=== PATIENT | male | born 1935 | race Caucasian/White ===

== ENCOUNTER 2017-04-26 21:03 | Inpatient (IN) | payer MEDICARE, MEDICAID ==
--- NOTE | 2017-04-26 21:35 | ED Physician Chart ---
ED Chief Complaint/HPI - Patient Information Date Seen:: 04/26/17 Time Seen:: 21:05 Chief Complaint:: left-sided weakness History of Present Illness:: Patient developed what he described as left leg heaviness last night which improved. Patient had left arm numbness and weakness this morning which has persisted. He walks with a noticeable limp. His speech is also noted to be slower than usual although he apparently always has slow speech. He normally takes 1 baby aspirin a day but he was given 2 this morning. Patient had a CVA about 2 years ago which left no focal neurological deficit. At that time dementia was diagnosed Allergies:: Allergies Allergy/AdvReac Type Severity Reaction Status Date / Time No Known Allergies Allergy Verified 04/26/17 21:17 Vitals:: Vital Signs - 8 hr 04/26/17 21:03 Temp 97.0 F HR 78 RR 18 BP 154/84 O2 Sat % 99 Historian:: Family Member Review:: Nurse's Note Reviewed ED Review of Systems - Review of Systems General/Constitutional: No fever, No chills Skin: No skin lesions Head: No headache Eyes: No loss of vision ENT: No earache Neck: No neck pain, No swelling Cardio Vascular: No chest pain, No palpitations Pulmonary: No SOB GI: No nausea, No vomiting, No diarrhea G/U: No dysuria Musculoskeletal: No bone or joint pain Endocrine: No polyuria, No polydipsia Psychiatric: Prior psych history Hematopoietic: No bruising Allergic/Immuno: No urticaria Neurological: No syncope ED Past Medical History - Past Medical History Past Medical History: HTN, DM Family History: Heart disease, Diabetes Melitus Social History: Non Smoker, No Alcohol, Other (drank alcohol many years ago) Surgical History: None Psychiatricy History: Dementia Medication: Reviewed Family Medical History - Family Member Mother History Unknown: Yes ED Physical Exam - Physical Examination General/Constitutional: Awake, Well-developed, well-nourished, Alert Head: Atraumatic Eyes: Lids, conjuctiva normal, PERRL Skin: Nl inspection, No rash ENMT: External ears, nose nl, Nasal exam nl, Lips, teeth, gums nl, Oropharynx nl , Tonsils nl Neck: No nuchal rigidity Respiratory: Clear to Auscultation, No Wheeze/Rhonchi/Rales Cardio Vascular: RRR, No murmur, gallop, rubs, NL S1 S2 GI: No tenderness/rebounding/guarding Other Neuro/Psych comments:: Minimal drooping left side of mouth; decreased left hand grasp; leg strength grossly equal; Babinski: Left equivocal right upgoing Misc: Normal back ED Labs/Radiology/EKG Results - Lab Results Comments:: Laboratory Results - last 24 hr 04/26/17 04/26/17 04/26/17 21:35 21:35 21:35 WBC 6.6 RBC 5.32 Hgb 15.5 Hct 46.4 MCV 87.3 MCH 29.1 MCHC Differential 33.4 RDW 14.0 Plt Count 178 MPV 7.8 Neutrophils % 63.8 Lymphocytes % 22.8 Monocytes % 9.0 Eosinophils % 3.4 Basophils % 1.0 PT 10.2 INR 0.98 PTT (Actin FS) 22.7 L Sodium 137 Potassium 3.8 Chloride 105 Carbon Dioxide 26.7 Anion Gap 9.1 BUN 19 Creatinine 1.3 Est GFR ( Amer) TNP Est GFR (Non-Af Amer) TNP BUN/Creatinine Ratio 14.6 Glucose 132 H Calcium 9.9 - Radiology Results Results: Chest x-ray normal. CT head shows an old large right parietal infarct. - EKG Interpretations Rate & Rhythm: normal sinus rhythm with a rate of 70 [place]: normal Comments:: Q waves in about [address] elevation in V1 and V2 ED Septic Shock - . Is Septic Shock (SBP<90, OR Lactate>4 mmol\L) present?: No - <6hrs of presentation: Vital Signs: Vital Signs - 8 hr 04/26/17 21:03 Temp 97.0 F HR 78 RR 18 BP 154/84 O2 Sat % 99 ED Reassessment (Disposition) - Reassessment Reassessment Condition:: Unchanged - Diagnosis Diagnosis:: Cerebrovascular accident - Patient Disposition Admitted to:: Med/Surg Spoke to:: Hira Calero Admitting Medical Physician:: Hira Calero Condition at Disposition:: Stable, Unchanged
[2017-04-26 21:44] LABS: % EOSINOPHILS 3.4 % (0.0-5.0); % LYMPHOCYTES 22.8 % (20.0-50.0); % NEUTROPHILS 63.8 % (40.0-80.0); BASOPHILE ABSOLUTE 0.1 Th/cumm (0-0.2); EOSINOPHILE ABSOLUTE 0.2 Th/cmm (0.1-0.4); HEMATOCRIT 46.4 % (41.0-60); HEMOGLOBIN 15.5 gm/dL (12-16); LYMPHOCYTE ABSOLUTE 1.5 Th/cmm (1.5-3.0); MEAN CELL VOLUME 87.3 fl (80-99); MEAN CORPUSCULAR HEMOGLOBIN 29.1 pg (27.0-31.0); MEAN CORPUSCULAR HGB CONC 33.4 pg (28.0-36.0); MEAN PLATELET VOLUME 7.8 fl; MONOCYTE ABSOLUTE 0.6 Th/cmm (0.3-1.0); NEUTROPHILE ABSOLUTE 4.2 Th/cmm (1.8-8.0); PLATELET COUNT 178 Th/cmm (150-400); RED BLOOD COUNT 5.32 Mil/cmm (3.80-5.80); WHITE BLOOD COUNT 6.6 Th/cmm (4.8-10.8)
[2017-04-26 21:58] LABS: INR 0.98 (0.5-1.4); PROTHROMBIN TIME (TEST) 10.2 SECONDS (9.5-11.5)
[2017-04-26 22:09] LABS: ANION GAP 9.1 (7.0-16.0); BUN - UREA NITROGEN 19 mg/dL (7-25); CALCIUM SERUM 9.9 mg/dL (8.6-10.3); CARBON DIOXIDE 26.7 mEq/L (21.0-31.0); CHLORIDE 105 mEq/L (98-107); CREATININE - SERUM 1.3 mg/dL (0.7-1.3); GLUCOSE 132 mg/dL (70-105); POTASSIUM SERUM 3.8 mEq/L (3.5-5.1); SODIUM SERUM 137 mEq/L (136-145)
[2017-04-26] MEDS ORDERED: Aspirin 81mg Chewable Tab PO STA ×2 (23:27→23:50)
[2017-04-26] MEDS ORDERED: Aspirin 81mg Chewable Tab ONE (23:29)
[2017-04-27] MEDS: Sodium Chloride 0.9% 1,000 ML IV SCH ×2 (03:34→17:20)
[2017-04-27 06:23] LABS: % BASOPHILS 0.8 % (0.0-2.0); % LYMPHOCYTES 25.2 % (20.0-50.0); % MONOCYTES 11.4 % (2.0-10.0); % NEUTROPHILS 57.6 % (40.0-80.0); EOSINOPHILE ABSOLUTE 0.2 Th/cmm (0.1-0.4); HEMATOCRIT 43.3 % (41.0-60); HEMOGLOBIN 14.4 gm/dL (12-16); LYMPHOCYTE ABSOLUTE 1.3 Th/cmm (1.5-3.0); MEAN CELL VOLUME 87.3 fl (80-99); MEAN CORPUSCULAR HEMOGLOBIN 29.1 pg (27.0-31.0); MEAN CORPUSCULAR HGB CONC 33.3 pg (28.0-36.0); MEAN PLATELET VOLUME 8.3 fl; MONOCYTE ABSOLUTE 0.6 Th/cmm (0.3-1.0); NEUTROPHILE ABSOLUTE 2.9 Th/cmm (1.8-8.0); PLATELET COUNT 161 Th/cmm (150-400); RED BLOOD COUNT 4.95 Mil/cmm (3.80-5.80)
[2017-04-27] MEDS: Pantoprazole 40 mg EC Tab PO SCH (06:23)
[2017-04-27 06:33] LABS: ANION GAP 8.9 (7.0-16.0); BUN - UREA NITROGEN 18 mg/dL (7-25); CALCIUM SERUM 9.6 mg/dL (8.6-10.3); CARBON DIOXIDE 24.8 mEq/L (21.0-31.0); CHLORIDE 107 mEq/L (98-107); CREATININE - SERUM 1.2 mg/dL (0.7-1.3); GLUCOSE 98 mg/dL (70-105); POTASSIUM SERUM 3.7 mEq/L (3.5-5.1); SODIUM SERUM 137 mEq/L (136-145)
[2017-04-27] MEDS ORDERED: INSULIN ASPART SLIDING SCALE 100 UNITS/ML UNIT SUBQ SCH (07:30)
--- NOTE | 2017-04-27 07:45 | Diagnostic Imaging Report ---
Exam: CT examination of brain. HISTORY: Left-sided weakness. Total DLP equals 560 CTDI equals 0.9, 0.9. Findings: Multiple contiguous thin section of the brain were obtained from the base of skull to the vertex without the administration of contrast material the study compared to prior exam 10/08/2014 The study demonstrates relatively large hypodense region in the right parietal lobe suggestive of an old infarct. There is no evidence for edema midline shift or hemorrhage. The ventricular system is intact. Prominence of cerebral sulci suggestive of atrophy. The bony calvarium is intact the paranasal sinuses are well aerated. IMPRESSION: Large old right parietal infarct Atrophy, periventricular ischemic white matter changes of old splenic artery.
[2017-04-27] MEDS ORDERED: MEMANTINE HCL 28 MG PO SCH (09:00)
[2017-04-27] MEDS ORDERED: IOHEXOL 300mgI/mL 50 ML VIAL PO ONE (09:30)
--- NOTE | 2017-04-27 09:56 | Diagnostic Imaging Report ---
Portable chest x-ray HISTORY: Pain The overall heart size is difficult to assess with portable technique and a poor inspiration. No focal bony processes. No hilar or mediastinal abnormalities. IMPRESSION: No acute abnormalities
[2017-04-27] MEDS: INSULIN ASPART SLIDING SCALE 100 UNITS/ML UNIT SUBQ SCH ×4 (11:54→20:23)
--- NOTE | 2017-04-27 12:13 | History & Physical ---
ADMIT DATE: 04/27/2017 CHIEF COMPLAINT: Brought in to the Emergency Room for evaluation of left-sided weakness. HISTORY OF PRESENT ILLNESS: An 82-year-old -[place] male who resides in a [facility], has history of diabetes, hypertension, hyperlipidemia, psychotic disorder, noted by staff that the patient was weak on his left side and his speech was most dysarthric and more lethargic than usual. When the patient was arrived in the Emergency Room, the patient was worked up and noted that numbness and weakness was still persistent on the left lower extremity. The patient was advised to be admitted for further treatment. PAST MEDICAL HISTORY: Remarkable for; 1. Diabetes. 2. Hypertension. 3. Hyperlipidemia. 4. BPH. 5. DJD. 6. Psychotic disorder. MEDICATIONS LIST: Has been reviewed and reconciled appropriately. ALLERGIES: The patient is not allergic to medication. SOCIAL HISTORY: He is a ____. He lives in assisted living facility. The patient has no smoking cigarette, alcohol, or drug use. FAMILY HISTORY: Remarkable for diabetes and hypertension. REVIEW OF SYSTEMS: The patient is lying in the bed, unable to get meaningful history from the patient currently. PHYSICAL EXAMINATION: GENERAL: The patient is alert and awake, lying in the bed without any acute distress. VITAL SIGNS: Temperature 98, pulse is 64, respiratory rate 18, and blood pressure 110/70. SKIN: Warm to touch. HEENT: Normocephalic and atraumatic. Extraocular muscles are intact. Tongue was pink and coated. Poor dentition noted. NECK: Supple. No JVD. No hepatojugular reflux. No lymphadenopathy, thyromegaly, or carotid bruit. HEART: Both heart sounds are regular. No S3, no S4. Grade 2/6 systolic murmur noted. CHEST: Lungs equal in expansion. No wheezing. No crackles. ABDOMEN: Soft. No guarding or rigidity. Bowel sounds are present. No palpable mass. EXTREMITIES: No edema, no cyanosis. Pulses are +1. NEUROLOGIC: Alert and awake. Follows commands. No facial asymmetry noted. A 2-12 cranial nerves are intact. Power in upper and lower extremity, decreased on the left side is 4+ including proximal and distal muscles, right lower extremity is 5-. Unable to assess cerebellar sign at this time. AVAILABLE DIAGNOSTIC DATA: CT scan of the head was done on 04/26/2017, which is a large old right parietal infarct noted, atrophy of periventricular ischemic white matter changes noted. White count of 5, hemoglobin 14.4, and platelet count 161. Chemistry panels are within normal limit. Chest x-ray; no infiltrate, no congestion. EKG; normal sinus rhythm, no ST-T changes are representing acute ischemia. CLINICAL IMPRESSION: 1. Most likely transient ischemic attack versus reversible ischemic neurological deficit. The patient does have previous stroke. Unable to reassess due to being unable to get meaningful history from the patient. 2. Diabetes. 3. Hypertension. 4. Degenerative joint disease. 5. Benign prostatic hypertrophy. 6. Psychotic disorder. PLAN: The patient was admitted by Dr. Collins overnight. The patient will be placed on antiplatelet therapy with high dose statins. Neurology consultation requested. Appropriate home medicine were reconciliated. Diabetes management will be continued as well as other medications will be continued as well. The patient is to have Neurology evaluation from Dr. Kinsey as well. PT, OT will be started as well. Further workup including CT scan of the head with and without contrast, 2D echocardiogram along with carotid ultrasound will be done as well. Further recommendation will be given once other lab datas are available. JOB# [id number]
--- NOTE | 2017-04-27 12:15 | Diagnostic Imaging Report ---
Exam: CT examination of brain. HISTORY: CVA Total DLP equals 645 CTDI equals 36.1 Compared to prior study the early. Findings: Multiple contiguous thin section of the brain were obtained from base of skull to the vertex with administration of intravenous contrast material. The study again demonstrates atrophy with old right the parietal infarct. There is no evidence of hemorrhage midline shift or edema. The cerebellum is intact. The bony calvarium is normal. The paranasal sinuses are well aerated. IMPRESSION: Unchanged compared to prior examination day earlier.
--- NOTE | 2017-04-27 12:18 | Diagnostic Imaging Report ---
Exam: Ultrasound examination of the extracranial carotid circulation. HISTORY: CVA. Findings: Real-time ultrasound examination of the extracranial carotid circulation performed multiple planes utilizing color Doppler technique. The study was correlated with the prior exam of 10/09/2014. The study again demonstrates [id number] atherosclerotic disease of the internal carotid arteries was atherosclerotic plaque formation consistent with calcified and soft plaque formation at the origin internal carotid arteries bilaterally. There is evidence for subintimal thickening in the right carotid bulb. Antegrade flow is noted vertebral circulation bilaterally. The right internal carotid artery ratio 1.3. Left internal right artery ratio is 0.9 Mild to moderate atherosclerotic plaque formation results in approximately 50-60% narrowing of the right internal carotid artery at the origin. Mild atherosclerotic plaque formation of the left internal carotid arteries noted of the origin without significant stenosis or alteration of flow. IMPRESSION: Moderate atherosclerotic plaque formation the right internal carotid artery with approximately 60% narrowing at the origin. Mild atherosclerotic changes of the left side without significant stenosis or alteration of flow.
[2017-04-27] MEDS: Atorvastatin Calcium 10 MG TAB PO SCH (20:23)
[2017-04-28] MEDS: Sodium Chloride 0.9% 1,000 ML IV SCH (04:23)
[2017-04-28 06:10] LABS: ANION GAP 8.2 (7.0-16.0); BUN - UREA NITROGEN 18 mg/dL (7-25); CALCIUM SERUM 9.4 mg/dL (8.6-10.3); CARBON DIOXIDE 24.7 mEq/L (21.0-31.0); CHLORIDE 108 mEq/L (98-107); CHOLESTEROL 134 mg/dL (<200); CREATININE - SERUM 1.2 mg/dL (0.7-1.3); GLUCOSE 115 mg/dL (70-105); HDL -HIGH DENSITY LIPOPROTEIN 36 mg/dL (23-92); POTASSIUM SERUM 3.9 mEq/L (3.5-5.1); SODIUM SERUM 137 mEq/L (136-145); TRIGLYCERIDES 118 mg/dL (<150)
[2017-04-28] MEDS: Pantoprazole 40 mg EC Tab PO SCH (06:15)
[2017-04-28] MEDS: INSULIN ASPART SLIDING SCALE 100 UNITS/ML UNIT SUBQ SCH ×4 (06:32→20:08)
--- NOTE | 2017-04-28 15:29 | Cardiology ---
04/27/2017 INCOMPLETE DICTATION The patient of Dr. Yancey. PROCEDURE: Echocardiogram. M-MODE ECHOCARDIOGRAM: Mitral valve, anterior leaflet of mitral valve shows normal excursion, EF velocity. Posterior leaflet of the mitral valve shows normal excursion. Left ventricular posterior wall shows increased thickness, normal excursion. Interventricular septum shows increased thickness and normal excursion. There is hypertrophy of the left ventricle, ejection fraction 55%. Left atrium normal. Aortic root shows normal dimension, minimal sclerosis of aortic leaflets. Questionable regurgitation. CONCLUSION: Hypertrophy of the left ventricle, sclerosis of aortic leaflets. 2D ECHO: Long axis view showed normal sized left ventricle with hypertrophy of the left ventricle. Left atrium normal. Aortic root shows normal dimension. The aortic leaflets shows sclerosis with possible regurgitation. Correlate clinically. Short axis view of mitral valve normal. Short axis DICTATION ENDS HERE. JOB# [id number]
--- NOTE | 2017-04-28 16:04 | Cardiology ---
04/27/2017 The patient of [facility]. Procedure: Echocardiogram. M-MODE ECHOCARDIOGRAM: Mitral valve, anterior leaflet of mitral valve shows normal excursion, EF velocity. Posterior leaflet of mitral valve shows normal excursion. Left ventricular posterior wall shows increased thickness, normal excursion. Interventricular septum shows increased thickness, normal excursion, hypertrophy of the left ventricle, ejection fraction 55%. Left atrium enlarged. Aortic root shows normal dimension, normal excursion of aortic leaflets. CONCLUSION: Hypertrophy of the left ventricle, sclerosis of aortic leaflets, ejection fraction 55%. 2D ECHO: Long axis view shows normal sized left ventricle with hypertrophy of the left ventricle. Left atrium normal. Aortic root shows normal dimension. The aortic leaflets shows sclerosis of aortic leaflets, possible vegetation. Short axis view of mitral valve normal. Short axis view of aortic valve shows possible regurgitation. There is minimal sclerosis of aortic leaflets. Apical four chamber view showed normal sized left ventricle with hypertrophy of the left ventricle. Left atrium normal. Right ventricular cavity, right atrium normal. No pericardial effusion. CONCLUSION: Minimal sclerosis of aortic leaflets, possible regurgitation, correlate clinically. Hypertrophy of the left ventricle, ejection fraction 55%. Doppler study shows mild tricuspid regurgitation. JOB# [id number]
[2017-04-28] MEDS: Atorvastatin Calcium 10 MG TAB PO SCH (20:08)
--- NOTE | 2017-04-29 01:43 | Progress Notes ---
DATE: 04/28/2017 SUBJECTIVE: The patient was seen and examined. The patient is lying in the bed. The patient has expressive aphasia with underlying psychiatric history, unable to get meaningful history. According to the patient, the patient feels better. PHYSICAL EXAMINATION: VITAL SIGNS: Temperature 98.4, pulse 64, respiratory rate 18, and blood pressure 105/57. HEENT: No facial asymmetry. Multiple poor dentition noted. NECK: Supple, no JVD. HEART: Regular. CHEST: Equal in expansion. No expiratory wheezing. ABDOMEN: Soft. No guarding or rigidity. Bowel sounds are present. EXTREMITIES: Remarkable for right-sided weakness noted. AVAILABLE DIAGNOSTIC STUDIES: CT scan of the head with contrast revealed old right parietal infarct without any evidence of any hemorrhage. Carotid artery ultrasound is remarkable for moderate atherosclerotic plaque formation in the right internal carotid artery with approximately 60% narrowing of the origin. Lipid panel is remarkable for cholesterol 134 with triglyceride of 118, HDL of 36, and LDL of 84. BUN and creatinine are normal. A 2D echocardiogram is currently pending. ASSESSMENT: 1. Most likely transient ischemic attack. 2. Carotid artery stenosis. 3. Cerebrovascular accident with late effect. 4. Diabetes mellitus. 5. Hypertension. 6. Psychotic disorder. 7. Degenerative joint disease. 8. Benign prostatic hypertrophy. PLAN: The patient looks clinically stable at this time. We will wait for 2D echocardiogram report and we will put the patient on antiplatelet therapy. Considering the patient's 60% stenosis on carotid ultrasound. The patient will also wait for Dr. Kinsey's evaluation prior to disposition of this patient to lower level of care as well. Meanwhile, continue current treatment plan as prescribed. Continue to provide physical therapy and occupational therapy as well as general nursing care as well. JOB# [id number]
[2017-04-29] MEDS: Pantoprazole 40 mg EC Tab PO SCH (06:42)
[2017-04-29] MEDS: INSULIN ASPART SLIDING SCALE 100 UNITS/ML UNIT SUBQ SCH ×3 (06:42→17:34)
[2017-04-29 07:19] LABS: ANION GAP 7.6 (7.0-16.0); BUN - UREA NITROGEN 20 mg/dL (7-25); CALCIUM SERUM 9.6 mg/dL (8.6-10.3); CHLORIDE 107 mEq/L (98-107); CREATININE - SERUM 1.2 mg/dL (0.7-1.3); GLUCOSE 113 mg/dL (70-105); POTASSIUM SERUM 3.6 mEq/L (3.5-5.1); SODIUM SERUM 137 mEq/L (136-145)
--- NOTE | 2017-04-29 16:25 | Discharge Summary ---
DATE OF DISCHARGE: 04/29/2017 DATE OF DISCHARGE: 04/29/2017. PRINCIPAL DIAGNOSES: 1. Transient ischemic attack. 2. Cerebrovascular accident with right-sided weakness. 3. Right internal carotid artery stenosis 60%. 4. Hypertension. 5. Diabetes mellitus. 6. Left ventricular hypertrophy by 2D echocardiogram. 7. Degenerative joint disease. 8. Benign prostatic hypertrophy. 9. Hyperlipidemia. 10. Fall risk. BRIEF STATEMENT FOR THE REASON FOR ADMISSION: An 82-year-old male presented to Emergency Room for evaluation of acute onset of left-sided weakness. The patient was evaluated and subsequently admitted to the hospital. Please refer to my dictated H and P for further information. HOSPITAL COURSE: The patient was admitted to telemetry unit. The patient was placed on antiplatelet therapy along with high-dose statin. Neurology consultation requested. Unfortunately, Neurology service was not available, but the patient underwent CT scan of head with contrast, carotid ultrasound, and 2D echocardiogram. Workup did reveal the patient has LVH with ejection fraction of 55% with right internal carotid artery stenosis origin, it is 60%. The patient was placed on Plavix. The patient did have no further neurological deterioration. The patient did have significant improvement with his symptoms after being admitted. The patient was able to eat well. The patient was able to ask for need for his activity of daily living. The patient remained hemodynamically stable. Discussed with family service caseworker about discharging this patient to a lower level of care. After talking to the patient's RN, the patient will be going home versus snf with taking Plavix 75 mg daily and discontinue the aspirin and keep atorvastatin 20 mg a day along with other medication that is patient receiving. The patient will be seen by primary care pediatrician in office in 1-2 weeks or goes to snf as scheduled as well. JOB# [id number]
--- NOTE | 2017-04-29 16:56 | Progress Notes ---
DATE: 04/29/2017 PATIENT'S IDENTIFICATION: An 82-year-old male. SUBJECTIVE: The patient seen and examined. The patient's room has changed to a room #18, bed #2. The patient is lying in the bed. The patient speaks Swedish only. According to the staff, the patient was able to eat, stand up, and ask for his basic need as well. To further questioning, the patient denies any chest pain, shortness of breath, palpitation, or dizziness. PHYSICAL EXAMINATION: VITAL SIGNS: Temperature 98.4, pulse 67, respiratory rate 18, and blood pressure 134/84. HEENT: No facial asymmetry. Poor dentition noted. NECK: Supple. No JVD. No lymphadenopathy or thyromegaly. HEART: Both heart sounds are regular. CHEST: Lungs are equal in expansion. No expiratory wheezing. ABDOMEN: Soft. No guarding, no rigidity. Bowel sounds are present. No palpable mass. EXTREMITIES: No edema, no cyanosis. NEURO: Right-sided weakness noted. AVAILABLE DATA: 2D echo remarkable for sclerosis of aortic leaflet with regurgitation, hypertrophy of left ventricle with ejection fraction of 55% noted. CLINICAL IMPRESSION: 1. Transient ischemic attack. 2. Left ventricular hypertrophy by 2D echocardiogram. 3. 60% carotid artery stenosis of the right internal carotid artery, narrowing at the origin. 4. Diabetes mellitus. 5. Hypertension. 6. Psychotic disorder. 7. Degenerative joint disease. 8. Benign prostatic hypertrophy. 9. Dementia. PLAN: Case, the patient is clinically stable. At this time, the patient will be discharged to home with Plavix 75 mg a day and discontinue aspirin for now. The patient can resume other medication as the patient receiving including a moderate potency statin, atorvastatin 20 mg a day. The patient will be continued on other medication as well. The patient's discharge will be home versus half-way based on the patient's safety. Discharge instruction discussed with RN and upper caser. JOB# [id number]
== END 2017-04-29 18:35 | disposition home or self-care (01) | DRG 69 ==
LOC: ER 21:03 → TELE 23:49 → MSI 04-29 17:16
PROVIDERS: ADMIT Internal Medicine; ATTEND Internal Medicine
DX: G45.9 Transient cerebral ischemic attack, unspecified (principal); I69.951 Hemiplegia and hemiparesis following unspecified cerebrovascular disease affecting right dominant side; E11.9 Type 2 diabetes mellitus without complications; R47.01 Aphasia; F03.90 Unspecified dementia, unspecified severity, without behavioral disturbance, psychotic disturbance, mood disturbance, and anxiety; M19.90 Unspecified osteoarthritis, unspecified site; N40.0 Benign prostatic hyperplasia without lower urinary tract symptoms; F29 Unspecified psychosis not due to a substance or known physiological condition; I11.9 Hypertensive heart disease without heart failure; E78.5 Hyperlipidemia, unspecified; Z79.82 Long term (current) use of aspirin; Z83.3 Family history of diabetes mellitus; Z82.49 Family history of ischemic heart disease and other diseases of the circulatory system; Z79.899 Other long term (current) drug therapy; Z79.1 Long term (current) use of non-steroidal anti-inflammatories (NSAID); Z79.2 Long term (current) use of antibiotics
CPT/HCPCS: 36415-UA; 70450-TC; 70460-TC; 71045-TC; 80048-TC; 80061-TC; 82948-90; 84484-TC; 85025-TC; 85610-TC; 85730-TC; 93005; 93307-TC; 93880-TC; 97530; J1815; J7030; Q9967; X3904; Z7610

== ENCOUNTER 2018-08-12 18:33 | Inpatient (IN) | payer MEDICARE, MEDICAID ==
--- NOTE | 2018-08-12 19:12 | ED Physician Chart ---
ED Chief Complaint/HPI - Patient Information Date Seen:: 08/12/18 Time Seen:: 19:06 Chief Complaint:: psychosis History of Present Illness:: 83 yr old with hx cva htn pvd depression diabetes copd here for aggressive behaviour toward staff Allergies:: Allergies Allergy/AdvReac Type Severity Reaction Status Date / Time No Known Allergies Allergy Verified 04/26/17 21:17 Vitals:: Vital Signs - 8 hr 08/12/18 18:41 Temp 98.4 F HR 71 RR 21 BP 146/75 O2 Sat % 98 ED Review of Systems - Review of Systems General/Constitutional: No fever, No chills, No weight loss, No weakness, No diaphoresis, No edema, No loss of appetite Skin: No skin lesions, No rash, No bruising Head: No headache, No light-headedness Eyes: No loss of vision, No pain, No diplopia ENT: No earache, No nasal drainage, No sore throat, No tinnitus Neck: No neck pain, No swelling, No thyromegaly, No stiffness, No mass noted Cardio Vascular: No chest pain, No palpitations, No PND, No orthopnea, No edema Pulmonary: No SOB, No cough, No sputum, No wheezing GI: No nausea, No vomiting, No diarrhea, No pain, No melena, No hematochezia, No constipation, No hematemesis G/U: No dysuria, No frequency, No hematuria Musculoskeletal: No bone or joint pain, No back pain, No muscle pain Endocrine: No polyuria, No polydipsia Psychiatric: Depression, Anxiety Hematopoietic: No bruising, No lymphadenopathy Allergic/Immuno: No urticaria, No angioedema Neurological: No syncope, No focal symptoms, No weakness, No paresthesia, No headache, No seizure, No dizziness, No confusion, No vertigo ED Past Medical History - Past Medical History Past Medical History: HTN, DM, Asthma/COPD, CVA/TIA Family Medical History - Family Member Mother History Unknown: Yes ED Physical Exam - Physical Examination General/Constitutional: Awake, Well-developed, well-nourished, Alert, No distress, GCS 15, Non-toxic appearing, Ambulatory Head: Atraumatic Eyes: Lids, conjuctiva normal, PERRL, EOMI Skin: Nl inspection, No rash, No skin lesions, No ecchymosis, Well hydrated, No lymphadenopathy ENMT: External ears, nose nl, Nasal exam nl, Lips, teeth, gums nl Neck: Nontender, Full ROM w/o pain, No JVD, No nuchal rigidity, No bruit, No mass, No stridor Respiratory: Nl effort/Exclusion, Clear to Auscultation, No Wheeze/Rhonchi/Rales Cardio Vascular: RRR, No murmur, gallop, rubs, NL S1 S2 GI: No tenderness/rebounding/guarding, No organomegaly, No hernia, Normal BS's, Nondistended, No mass/bruits, No McBurney tenderness : No CVA tenderness Extremities: No tenderness or effusion, Full ROM, normal strength in all extremities, No edema, Normal digits & nails Neuro/Psych: Alert/oriented, DTR's symmetric, Normal sensory exam, Normal motor strength, Judgement/insight normal, Mood normal, Normal gait, No focal deficits Misc: Normal back, No paraspinal tenderness ED Assessment - Assessment General Assessment: psychosis aggressive behaviour ED Septic Shock - . Is Septic Shock (SBP<90, OR Lactate>4 mmol\L) present?: No - <6hrs of presentation: Vital Signs: Vital Signs - 8 hr / 18:41 Temp 98.4 F HR 71 RR 21 BP 146/75 O2 Sat % 98 ED Reassessment (Disposition) - Reassessment Reassessment:: psychosis agitation for geropsych evaluation - Diagnosis Diagnosis:: psychosis agitation for geropsych evaluation - Aftercare/Follow up Instructions Aftercare/Follow-Up Instructions:: Counseled pt regarding lab results/diagnosis & need follow up - Patient Disposition Discharge/Transfer:: Acute Care w/in this hosp Admitted to:: [facility] Condition at Disposition:: Stable
[2018-08-12 19:40] LABS: % BASOPHILS 0.7 % (0.0-2.0); % EOSINOPHILS 9.2 % (0.0-5.0); % LYMPHOCYTES 25.7 % (20.0-50.0); % MONOCYTES 7.9 % (2.0-10.0); % NEUTROPHILS 56.5 % (40.0-80.0); EOSINOPHILE ABSOLUTE 0.5 Th/cmm (0.1-0.4); HEMATOCRIT 39.6 % (41.0-60); HEMOGLOBIN 13.5 gm/dL (12-16); LYMPHOCYTE ABSOLUTE 1.4 Th/cmm (1.5-3.0); MEAN CELL VOLUME 87.7 fl (80-99); MEAN CORPUSCULAR HEMOGLOBIN 29.9 pg (27.0-31.0); MEAN CORPUSCULAR HGB CONC 34.1 pg (28.0-36.0); MONOCYTE ABSOLUTE 0.4 Th/cmm (0.3-1.0); NEUTROPHILE ABSOLUTE 3.3 Th/cmm (1.8-8.0); PLATELET COUNT 187 Th/cmm (150-400); RED BLOOD COUNT 4.52 Mil/cmm (3.80-5.80); RED CELL DISTRIBUTION WIDTH 13.8 % (11.5-20.0); WHITE BLOOD COUNT 5.6 Th/cmm (4.8-10.8)
[2018-08-12 19:59] LABS: ALB/GLOB RATIO 1.4 (1.0-1.8); ALBUMIN 3.9 gm/dL (4.2-5.5); ALKALINE PHOSPHATASE 121 U/L (34-104); ANION GAP 10.2 (7.0-16.0); BILIRUBIN,TOTAL 0.5 mg/dL (0.3-1.0); BUN - UREA NITROGEN 20 mg/dL (7-25); CALCIUM SERUM 9.1 mg/dL (8.6-10.3); CARBON DIOXIDE 27.5 mEq/L (21.0-31.0); CHLORIDE 105 mEq/L (98-107); GLUCOSE 96 mg/dL (70-105); POTASSIUM SERUM 3.7 mEq/L (3.5-5.1); SGOT 15 U/L (13-39); SGPT/ALT 15 U/L (7-52); SODIUM SERUM 139 mEq/L (136-145); TOTAL PROTEIN,SERUM 6.7 gm/dL (6.0-8.3)
[2018-08-12 21:43] VITALS: BP 121/63
[2018-08-12] MEDS ORDERED: Maalox 30 mL Cup PO PRN (21:52)
[2018-08-12] MEDS ORDERED: Magnesium Hydroxide (MOM) 30 mL UDC PO PRN (21:55)
[2018-08-12 22:05] LABS: CHOLESTEROL 87 mg/dL (<200); HDL -HIGH DENSITY LIPOPROTEIN 33 mg/dL (23-92); TRIGLYCERIDES 79 mg/dL (<150)
[2018-08-13] MEDS: Multivitamin Tab PO SCH (08:43)
[2018-08-13] MEDS: Pantoprazole 40 mg EC Tab PO SCH (08:43)
[2018-08-13] MEDS ORDERED: Non-Formulary Item 1 EA (Amino Acids/Protein Hydrolys [Pro-Stat Sugar Free Liquid] 30 ML) PO SCH (09:00)
--- NOTE | 2018-08-13 15:46 | History & Physical ---
ADMIT DATE: PATIENT IDENTIFICATION: Patient is an 83-year-old male. REQUESTING PHYSICIAN: Dr. Hillman. HISTORY SOURCE: Talking to the patient and reviewing the chart. HISTORY OF PRESENT ILLNESS: The patient is an 83-year-old -French male who resides in a [place] [facility], has complex medical problems including the psychotic disorder, brought into the Emergency Room for evaluation of aggressive behavior towards staff. The patient was evaluated by Emergency Room MD and subsequently admitted to the hospital for further treatment. Due to his underlying medical illness, the patient is unable to provide any meaningful history. PAST MEDICAL HISTORY: Remarkable for: 1. Diabetes. 2. Hypertension. 3. Hyperlipidemia. 4. Benign prostatic hypertrophy. 5. Degenerative joint disease. 6. Psychotic disorder. 7. Dementia. 8. Glaucoma. 9. History of cerebrovascular accident. MEDICATIONS: At the time of admission have been reviewed and reconciled appropriately. ALLERGIES: None. SOCIAL HISTORY: The patient resides in a nursing at [facility]. Patient has no history of smoking cigarette, alcohol, or drug use. FAMILY MEDICAL HISTORY: Remarkable for diabetes and hypertension. REVIEW OF SYSTEMS: Unable to get meaningful history from the patient currently. PHYSICAL EXAMINATION: GENERAL: The patient is alert, awake, lying in the bed without any acute distress. VITAL SIGNS: Temperature 97.6, pulse is 78, respiratory rate 18, blood pressure 132/70. SKIN: Warm to touch. Adequate skin turgor. No petechia, no purpura. HEENT: Normocephalic, atraumatic. Extraocular muscles are intact. Tongue was pink and coated. Poor dentition noted. No oral lesion, no exudate. NECK: Supple, no JVD, no hepatojugular reflex. No lymphadenopathy, thyromegaly or carotid bruit. HEART: Both heart sounds are regular. Grade 2/6 systolic murmur noted. No S3, no S4. CHEST: Lung equal in expansion, no expiratory wheezing. ABDOMEN: Soft. No guarding, no rigidity. Bowel sounds are present. No palpable mass. EXTREMITIES: No edema. Peripheral pulses +1. No calf tenderness. No cyanosis, no clubbing. NEUROLOGIC: Alert and awake, follows simple commands. No facial asymmetry noted. Power in upper and lower extremities decreased to 4+ on proximal and distal muscles, unable to assess cerebellar sign throughout. AVAILABLE DIAGNOSTIC DATA: Performed in the Emergency Room, white count of 5.6, hemoglobin 13.5, platelet count of 187, BUN and creatinine are 20 and 1.0, alkaline phosphatase 121. Albumin 3.9. Cholesterol of 87, LDL 45, HDL of 33. Other diagnostic data currently unavailable. CLINICAL IMPRESSION: 1. Psychotic disorder exacerbation. 2. Diabetes. 3. Hypertension. 4. Hyperlipidemia. 5. Glaucoma. 6. Degenerative joint disease. 7. High risk for fall. 8. Gastroesophageal reflux disease. 9. Fall risk. PLAN: 1. Psychotic evaluation and management deferred to psychiatrist. 2. Continue his [place] [facility] medication as patient is receiving. Fall precaution will be given. Nutritional support will be given. General nursing care will be provided and we will continue to follow this patient during the stay in the hospital. I sincerely thank you Dr. Hillman for giving me the opportunity to participate in patient of yours. JOB# [id number]
--- NOTE | 2018-08-14 02:26 | Psychiatric Evaluation ---
DATE OF SERVICE: 08/12/2018 IDENTIFYING DATA: The patient is an 83-year-old resident of [facility]. Information obtained by directly interviewing the patient as well as reviewing the admission papers and they are reliable. JUSTIFICATION OF HOSPITALIZATION: The patient is admitted on a [facility] basis [facility] the [facility] in view of his agitation and out of control behavior. HISTORY OF PRESENT ILLNESS: As per the information obtained, the patient has been getting easily irritable and Dr. Hillman has referred the patient over here for striking out the staff members and has been very resistive to care. The patient is interviewed. Staff was spoken to. The patient is interviewed through a [place] Islander speaking binder roller. The patient has been able to verbalize a few of the issues. The patient has multiple medical problems such as type 2 diabetes mellitus, chronic kidney disease, dysphagia, hyperlipidemia and the patient has been lying down in the bed at this time. Sleep is reported to be fair. Appetite is also noted to be fair prior to the hospitalization. The patient is being treated by Dr. Hillman on an outpatient basis with Remeron for his depression, but the patient is reported to have been getting easily agitated at this time and he could not be contained at a lower level of care and hence brought over here for stabilization. PAST PSYCHIATRIC HISTORY: Details are not known. MEDICAL HISTORY: Physical examination is requested to be done by Dr. Yancey. SUBSTANCE ABUSE HISTORY: None. PHYSICAL OR SEXUAL ABUSE HISTORY: None. LEGAL PROBLEMS: None at this time. STRENGTH AND ASSETS: The patient is motivated. MENTAL STATUS EXAMINATION: The patient is an 83-year-old, looking his stated age, superficially cooperative. The patient is isolative and withdrawn. Insight and judgment at this time are noted to be still impaired. Impulse control is noted to be limited. The patient's coping skills are noted to be limited. The patient has been going off on a tangent and the patient is frustrated. The patient's short and half-way are noted to be impaired. The patient is reported to have been getting out of control on an outpatient basis. DIAGNOSTIC IMPRESSION: AXIS I: Major depressive disorder, recurrent and moderate. IB: Dementia and behavioral changes, secondary trait. AXIS II: None. AXIS III: As per Dr. Yancey. IMMEDIATE TREATMENT PLAN: The patient is going to be observed on inpatient unit, provided with supportive psychotherapy. The patient is going to be closely monitored. Once stabilized, the patient is going to be discharged to self to be followed up on an outpatient basis. [facility]# [id number]
[2018-08-14 08:08] LABS: A1C 5.9 % (4.8-5.6)
[2018-08-14] MEDS: Multivitamin Tab PO SCH (09:14)
[2018-08-14] MEDS: Pantoprazole 40 mg EC Tab PO SCH (09:14)
--- NOTE | 2018-08-15 01:12 | Progress Notes ---
DATE: 08/14/2018 PSYCHIATRIC PROGRESS NOTE SUBJECTIVE: Staff was spoken to. The patient is interviewed. Mood is noted to be irritable. Affect is constricted. Coping skills are noted to be poor at this time. The patient is getting easily frustrated. No side effects to the medications are noted. The patient's blood culture has been pending at this time. I am waiting to see the results before I can start him on any antipsychotic medications so far. The patient has been able to comply with the treatment. ____ in view of the agitation, he is going to be started on a very low dose of the Seroquel, which is going to be given at 12.5 mg and followed up with the supportive therapy. JOB# [id number]
[2018-08-15] MEDS: Pantoprazole 40 mg EC Tab PO SCH (08:53)
[2018-08-15] MEDS: Multivitamin Tab PO SCH (08:54)
--- NOTE | 2018-08-15 13:20 | Progress Notes ---
DATE: IDENTIFICATION: An 83-year-old male. SUBJECTIVE: The patient is seen and examined. The patient is lying in the bed, did receive a call earlier for the positive blood cultures. The patient had 2 blood cultures done. One culture is negative, second culture is gram-positive cocci in cluster. PHYSICAL EXAMINATION: GENERAL: The patient has no complaint. No fever, no chills. The patient is eating fairly well. VITAL SIGNS: Temperature 97.5, pulse is 76, respiratory rate 18, blood pressure 135/91. HEENT: No facial asymmetry. NECK: Supple, no JVD. HEART: Regular. CHEST AND LUNGS: Equal in expansion, no expiratory wheezing. ABDOMEN: Soft. EXTREMITIES: No edema. CLINICAL IMPRESSION: 1. Positive blood cultures x1, most likely Staphylococcus coagulase negative. The patient does not have any signs of sepsis or any septicemia. I think this occult positive blood culture is contaminated. 2. Diabetes mellitus. 3. Hypertension. 4. Dementia. 5. History of cerebrovascular accident. 6. Degenerative joint disease. 7. Benign prostatic hypertrophy. 8. Psychotic disorder. PLAN: 1. Do not treat positive blood cultures since it looks contaminated. 2. Monitor blood sugar. 3. Continue medical management for hypertension, hyperlipidemia with prescribed medication. 4. Continue to provide fall precautions, general nursing care. We will continue to follow this patient during the stay in the hospital. JOB# [id number]
--- NOTE | 2018-08-15 21:26 | Consultation ---
DATE OF CONSULTATION: 08/15/2018 REFERRING PHYSICIAN: Huong Finnegan M.D. TYPE OF CONSULTATION: Psychology. HISTORY OF PRESENT ILLNESS: The patient is an 83-year-old male. The patient is a resident of [facility]. The following is by record review and by the patient's self-report. The patient is being admitted due to agitation and uncontainable behavior, i.e., striking out at staff. The staff at the patient's facility report that the patient has been getting easily agitated and was not responding to behavioral redirection. The patient is mostly Peruvian speaking, therefore Peruvian-speaking staff was present to assist in interpretation. The patient is stating that his appetite is poor and that he feels very tired. The patient denied that he had been striking out at staff members and had been resistant to care. The patient was guarded and generally dismissive at the time of this clinical interview. PAST MEDICAL HISTORY: Please see history and physical by Dr. Yancey. PAST PSYCHIATRIC HISTORY: Records are unavailable. Details are unknown. SUBSTANCE ABUSE HISTORY: The patient declined to answer any of these questions. PSYCHOSOCIAL HISTORY: The patient did not answer questions about educational history or occupational history. The patient indicated that he is a [employer] and that he from his . The patient states he has a son named David and a granddaughter named Lizette, who are involved in his care. The patient did not answer questions about any history of physical or sexual abuse or any current legal problems. The patient expects to return to his facility. The patient states he does not understand why he is being hospitalized. MENTAL STATUS EXAMINATION: The patient appears to be his stated age. Attitude is superficially cooperative. Eye contact is poor. Speech is slow and delayed. The patient requires a Peruvian-speaking pipe coverer helper. Staff is present yo provide this. The patient's mood is irritable. Affect is constricted. Thought process shows to be markedly tangential. The patient is having difficulty understanding and responding relevantly to the clinical questions. The patient denied any experiences of auditory or visual hallucinations or delusions. The patient denied any homicidal or suicidal ideation, plan or intention. The patient's behavior is easily frustrated and difficult to redirect. Impulse control is inadequate. Concentration is poor. The patient was unable to sustain focus and attention and respond relevantly to the majority of the clinical questions. The patient did not participate in the memory assessment. The patient's sensorium is alert and oriented to self and place only. The patient did not participate in the interpretation of proverbs. Insight is poor. Judgment is impaired. DIAGNOSTIC IMPRESSION: AXIS I: 1. Major depressive disorder, recurrent, moderate. 2. Dementia with behavioral disturbance. AXIS II: Deferred. AXIS III: Per Dr. Yancey. TREATMENT PLAN: The patient has been seen by Dr. Finnegan for psychiatric evaluation and for the management of the patient's psychotropic medications. We will provide supportive psychotherapy to include reality orientation, differentiation and integration. We will provide de-escalation and limit setting. We will provide boundary definitions and awareness and limits with respect to the patient's striking out behavior at staff at his placement. We will provide motivational enhancement for the patient to become compliant and to stay compliant with all aspects of his care and treatment. We will provide coping strategies for phase of life issues. We will provide coping strategies to assist the patient in reducing his depression. We will encourage the patient to demonstrate emotional and self-regulation by verbalizing his concerns versus acting out. We will provide daily opportunities for the patient to verbally contract for safety, i.e., no harm to others. Thank you, Dr. Finnegan for this consult and the opportunity to participate in this patient's care. JOB# [id number] CLAU
--- NOTE | 2018-08-16 00:21 | Progress Notes ---
DATE: 08/15/2018 IDENTIFICATION DATA: An 83-year-old male. SUBJECTIVE: The patient was seen and examined. The patient is lying in the bed. The patient remained hemodynamically stable, eating with help. PHYSICAL EXAMINATION: VITAL SIGNS: Temperature 97.7, pulse 68, respiratory rate 20, blood pressure 124/76. HEENT: No facial asymmetry. NECK: Supple, no JVD. HEART: Irregular. CHEST: Lung equal in expansion, no expiratory wheezing. ABDOMEN: Soft. No guarding or rigidity. Bowel sounds present. No palpable mass. EXTREMITIES: No edema. NEUROLOGIC: Alert, awake, following commands. Blood cultures done on 08/12/2018; one blood culture with no growth and one blood culture with Staph coagulase negative. MRSA screening came out positive. CLINICAL IMPRESSIONS: 1. Most likely contaminated blood cultures. 2. Methicillin-resistant Staphylococcus aureus nares with screen positive. 3. Diabetes. 4. Hypertension. 5. Hyperlipidemia. 6. Benign prostatic hypertrophy. 7. Degenerative joint disease. 8. Dementia. 9. History of cerebrovascular accident. PLAN: In the view of the patient's medical problem, I will treat the patient's MRSA nares with the Bactroban. Continue to monitor vital signs. Do not treat any positive blood cultures because I think the patient's blood culture is contaminated since there are no signs and symptoms of sepsis and there is no severe clinical evidence of septicemia as well. The patient will be placed on continuation of current medication as prescribed. We will continue to follow this patient during the stay in the hospital. [facility]# [id number]
--- NOTE | 2018-08-16 02:56 | Progress Notes ---
DATE: 08/15/2018 PSYCHIATRIC PROGRESS NOTE SUBJECTIVE: Staff was spoken to. The patient is interviewed. Mood is noted to be irritable. Affect is constricted. Insight and judgment at this time are noted to be still impaired. Impulse control is noted to be limited. Coping skills are noted to be limited. The patient's aggressive behavior has been closely monitored. The patient is currently on 12.5 mg of Seroquel at nighttime and has been able to tolerate. ASSESSMENT: The patient is still having a difficult time. PLAN: To continue the patient with supportive therapy. I encouraged the patient to verbalize the concerns rather than to act out. JOB# [id number]
[2018-08-16] MEDS: Multivitamin Tab PO SCH (09:05)
[2018-08-16] MEDS: Pantoprazole 40 mg EC Tab PO SCH (09:05)
--- NOTE | 2018-08-16 20:11 | Progress Notes ---
DATE: 08/16/2018 SUBJECTIVE: The patient is seen and examined. No new event. The final blood cultures came out micrococcus species consistent with contamination. The patient remained hemodynamically stable. PHYSICAL EXAMINATION: VITAL SIGNS: Temperature 97.8, pulse 70, respiratory rate 18, blood pressure 127/79. HEENT: No facial asymmetry. NECK: Supple. HEART: Regular. LUNGS: Clear. ABDOMEN: Soft. EXTREMITIES: No edema. CLINICAL IMPRESSION: 1. Contaminated blood cultures. 2. Methicillin-resistant Staphylococcus aureus screen positive. 3. Diabetes. 4. Hypertension. 5. Hyperlipidemia. 6. Psychotic disorder. 7. Degenerative joint disease. 8. Benign prostatic hypertrophy. PLAN: 1. Continue Bactroban for MRSA in nares. 2. Monitor blood sugar. 3. Monitor blood pressure. 4. Continue chronic disease management as prescribed. 5. General nursing care. 6. Fall precaution. 7. Psych medication and psych followup. 8. The patient is medically stable at this time for psychotic treatment. [facility]# [id number]
[2018-08-17] MEDS: Multivitamin Tab PO SCH (09:00)
[2018-08-17] MEDS: Pantoprazole 40 mg EC Tab PO SCH (09:00)
--- NOTE | 2018-08-17 09:05 | Progress Notes ---
DATE: 08/16/2018 SUBJECTIVE: Staff was spoken to. The patient is interviewed. Mood is noted to be irritable. Affect is constricted. The patient has been isolative and withdrawn. The patient has poor short-term as well as long-term memory deficits. The patient is getting easily annoyed when asked to get into the groups. The patient's sleep and appetite are noted to be improving at this time. No side effects to the medications are noted. ASSESSMENT: The patient is still impulsive. PLAN: To continue the patient with the supportive therapy, encouraged the patient to verbalize the concerns rather than to act out. JOB# [id number]
--- NOTE | 2018-08-17 22:58 | Progress Notes ---
DATE: 08/17/2018 PSYCHOLOGY PROGRESS NOTE SUBJECTIVE: The patient is seen and is interviewed. Case is discussed with staff. The patient continues to present as easily irritated. Staff reports the patient continues to isolate himself and is withdrawn. The patient seems to be annoyed when asked clinical questions and is reluctant to participate in the milieu therapy. OBJECTIVE: Mood is irritable. Affect is constricted. Thought process shows to be confused. The patient denied any hallucinations or delusions. The patient has been taking his p.o. medications, but is reluctant to participate in the supportive psychotherapy as well as the milieu therapy. ASSESSMENT AND PLAN: The patient's impulsivity persists, according to the staff. We will provide remotivation for the patient to become compliant with his care and treatment. We will provide coping strategies for phase of life issues. We will continue to encourage the patient to demonstrate emotional and self-regulation by verbalizing his concerns versus acting out. We will follow up in 2 days to continue the present treatment, if the patient remains on the unit. JOB# [id number] [email or web address]
--- NOTE | 2018-08-18 03:39 | Progress Notes ---
DATE: 08/17/2018 PSYCHIATRIC PROGRESS NOTE SUBJECTIVE: Staff was spoken to. The patient is interviewed. Mood is noted to be less irritable. Affect is appropriate. The patient's insight and judgment are noted to be still impaired. Impulse control seems to be improving. No side effects to the medications are noted. ASSESSMENT: The patient is still demented and impulsive. PLAN: To continue the patient with the supportive therapy and followup. [facility]# [id number]
[2018-08-18] MEDS: Multivitamin Tab PO SCH (08:50)
[2018-08-18] MEDS: Pantoprazole 40 mg EC Tab PO SCH (08:51)
--- NOTE | 2018-08-18 21:29 | Progress Notes ---
DATE: 08/18/2018 IDENTIFICATION: An 83-year-old male. SUBJECTIVE: The patient seen and examined. The patient is lying in the bed. No new event. PHYSICAL EXAMINATION: VITAL SIGNS: Temperature 97.7, pulse is 80, respiratory rate 18, blood pressure 137/84. HEENT: No facial asymmetry. NECK: Supple, no JVD. HEART: Regular. CHEST: Lung equal in expansion, no expiratory wheezing. ABDOMEN: Soft. No guarding or rigidity. Bowel sounds are present. No palpable mass. EXTREMITIES: No edema. CLINICAL IMPRESSION: 1. Methicillin-resistant Staphylococcus aureus screen positive. 2. Diabetes. 3. Hypertension. 4. Hyperlipidemia. 5. Psychotic disorder. 6. Degenerative joint disease. 7. Benign prostatic hypertrophy. 8. Contaminated blood cultures. PLAN: 1. Bactroban for MRSA. 2. Monitor blood sugar. 3. Monitor blood pressure. 4. Oral hypoglycemic agent. 5. Antihypertensive medication. 6. Psych followup. 7. Nutritional support. 8. General nursing care. 9. Fall precautions. 10. Care plan reviewed and discussed. JOB# [id number]
--- NOTE | 2018-08-19 04:19 | Progress Notes ---
DATE: 08/18/2018 PSYCHIATRIC PROGRESS NOTE SUBJECTIVE: Staff was spoken to. The patient is interviewed. Mood is noted to be anxious. Affect is appropriate. Not suicidal or homicidal. No major impulse control problems are reported. The patient has been compliant with the medications. No side effects to the medications are noted. Sleep and appetite are noted to be improving. ASSESSMENT: The patient is stabilizing. PLAN: To discharge the patient today for followup on outpatient basis. [facility]# [id number]
--- NOTE | 2018-08-20 19:28 | Discharge Summary ---
DATE OF DISCHARGE: 08/18/2018 IDENTIFYING DATA: The patient is an 83-year-old resident of [facility]. JUSTIFICATION OF HOSPITALIZATION: The patient is admitted for his aggressive behavior. DIAGNOSES AT THE TIME OF ADMISSION: AXIS I: Major depressive disorder, recurrent and moderate. 1B. Dementia and behavioral change, secondary trait. AXIS II: None. AXIS III: As per Dr. Yancey. HISTORY OF PRESENT ILLNESS: For a detailed history of present illness, please refer to the 08/13/2018 dictation done by me. HOSPITAL COURSE AND RESPONSE TO TREATMENT: The patient had the physical examination done by Dr. Yancey and is noted to be significant for diabetes mellitus, hypertension, hyperlipidemia, arthritis, and degenerative joint disease. Blood work done at the hospitalization has been reviewed by him. The patient has been observed on inpatient unit, provided with supportive psychotherapy. The patient has been closely monitored. Encouraged to verbalize the concerns rather than to act out. The patient has been placed on the routine p.r.n. medications including the zolpidem and the patient has been placed on the Seroquel, which was given up to 12.5 mg at bedtime for the impulse control problems and the patient has been closely monitored for any side effects. The patient started to do fairly well and was discharged with recommendation that he is going to be seeking treatment on an outpatient basis. MENTAL STATUS EXAMINATION: At the time of discharge, the patient's mood is noted to be less irritable. Affect is appropriate. Not suicidal or homicidal. Insight and judgment at this time are noted to be improving. Impulse control seems to be fair. No side effects to the medications are noted at the time of the discharge. The patient has been able to verbalize the concerns rather than to act out. CONDITION: At the time of discharge is noted to be stable. PROGNOSIS: At the time of the discharge noted to be fair with the treatment. JOB# [id number]
== END 2018-08-18 18:20 | DRG 885 ==
LOC: ER 18:33 → GERO2 20:15
DX: F33.1 Major depressive disorder, recurrent, moderate (principal); F03.91 Unspecified dementia, unspecified severity, with behavioral disturbance; F23 Brief psychotic disorder; I10 Essential (primary) hypertension; E11.51 Type 2 diabetes mellitus with diabetic peripheral angiopathy without gangrene; J44.9 Chronic obstructive pulmonary disease, unspecified; E78.5 Hyperlipidemia, unspecified; N40.0 Benign prostatic hyperplasia without lower urinary tract symptoms; H40.9 Unspecified glaucoma; M19.90 Unspecified osteoarthritis, unspecified site; B95.62 Methicillin resistant Staphylococcus aureus infection as the cause of diseases classified elsewhere; Z86.73 Personal history of transient ischemic attack (TIA), and cerebral infarction without residual deficits; Z91.81 History of falling
CPT/HCPCS: 36415-UA; 80053-TC; 80061-TC; 83036-90; 85025-TC; 93005; Z7610